=== PATIENT | male | born 1995 | race Two or more races ===

== ENCOUNTER 2018-08-09 16:24 | Emergency (ER) | payer OTHER ==
[~2018-08-09] VITALS: Ht 190.5 cm; Wt 77.1 kg
[2018-08-09] MEDS ORDERED: Methocarbamol 500mg tab ORAL ONE (17:00)
[2018-08-09] MEDS ORDERED: IBUPROFEN600 MG ORAL (17:18)
[2018-08-09] MEDS ORDERED: LIDOCAINE700 M1 TP (17:18)
[2018-08-09] MEDS ORDERED: ROBAXIN500 MG PO (17:18)
--- NOTE | 2018-08-09 17:21 | Emergency Room Report ---
History of Present Illness General Chief Complaint: Head Injury Source: Patient Present Illness HPI 23-year-old male patient presents ER complaining of head and neck pain status post injury. 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 reports injury occurred "about 4 or 5 hours ago". Reports head and neck pain at that time. Denies swelling on top of head. Denies loss of consciousness. Denies vomiting or vision changes. Reports took ibuprofen for pain. Reports pain with turning neck to the right. Denies pain rained down arms. Denies fever, chest pain, shortness of breath. is photophobia or phonophobia. Allergies: Coded Allergies: No Known Allergies (Unverified , 08/09/18) Patient History Past Medical History: see triage record Reviewed Nursing Documentation: PMH: Agreed; PSxH: Agreed Nursing Documentation-PMH Past Medical History: No Stated History Review of Systems All Other Systems: negative except mentioned in HPI Physical Exam Vital Signs Date Time Temp Pulse Resp B/P (MAP) Pulse Ox O2 Delivery O2 Flow Rate FiO2 08/09/18 16:36 98.2 79 18 137/80 98 Room Air Sp02 EP Interpretation: reviewed, normal General Appearance: well appearing, no apparent distress, alert, GCS 15, non- toxic Head: normocephalic, atraumatic, other - no hematoma, no skull depression, tender to palpation over medial posterior scalp, no erythema, no edema, no ecchymosis, no laceration, negative Christopher sign, negative raccoon eyes Eyes: bilateral eye normal inspection, bilateral eye PERRL ENT: hearing grossly normal, normal pharynx, no angioedema, normal voice, uvula midline, moist mucus membranes Neck: full range of motion, no bony tend Respiratory: lungs clear, normal breath sounds, no rhonchi, no respiratory distress, no accessory muscle use, no wheezing, speaking full sentences Cardiovascular #1: regular rate, rhythm, no edema Musculoskeletal: back normal, digits/nails normal, gait/station normal, normal range of motion, non-tender Neurologic: alert, oriented x3, responsive, 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 Vaca is my supervising Physician whom patient management has been discussed with. Diagnostic Impression: Primary Impression: Acute head injury Additional Impression: Neck pain ER Course Pt presents to ED c/o head and neck pain status post trauma. DDX considered but are not limited to laceration, abrasion, contusion, cellulitis, ICH, skull fracture, concussion, sprain, strain, fracture, muscle spasm. no loss of consciousness, no vomiting or vision changes, injury occurred several hours ago, patient is talkative, answering questions without difficulty , alert and oriented,, low suspicion for concussion. VITAL SIGNS are WNL, patient is afebrile ED INTERVENTIONS: patient states took ibuprofen about 2-3 hours ago, will provide patient with Robaxin and lidocaine patch while in the ER. no focal neuro deficits, cranial nerves intact as tested, no consciousness, no vomiting or vision changes, low suspicion for intracranial pathology, does not require CT of head at this time. small area of tenderness on posterior scalp, no skull depression, no laceration , no erythema or ecchymosis, no hematoma, likely contusion causing pain symptoms. Apply ice to affected area for pain and swelling symptoms. Take ibuprofen for pain. offered patient option of x-ray of neck, patient declined. No spinous process tenderness, full ROM, no bony depression, no pain radiating down arms, low suspicion for fracture, does not require imaging of neck at this time. patient states he can perform his normal activities at work and would like return to work. Worker's Compensation paperwork completed. follow up with Workmen's Compensation physician. Patient OK for discharge to home. Patient resting comfortably, in no acute distress, nontoxic appearing. DISCHARGE: Rx provided for Robaxin Rx provided for lidocaine Rx provided for Ibuprofen At this time pt is stable for d/c to home. Patient resting comfortably, in no acute distress, nontoxic appearing, talking without difficulty. Will provide with patient care instructions and any necessary prescriptions. Patient to take medication as instructed. Care plan and follow-up instructions provided. Patient questions asked and answered. Patient reports understanding and agrement to treatment plan. Patient instructed to follow-up with primary care provider in 1-3 days for wound check and 5-7 days for removal of paulie. Patient instructed to followup with PCP to discuss further treatment plan and ability to go to work, ER precautions given. Patient instructed to return to ER immediately for any new or worsening of symptoms. - Please note that this Emergency Department Report was dictated using [employer] physician technology software, occasionally this can lead to erroneous entry secondary to interpretation by the dictation equipment. Last Vital Signs Date Time Temp Pulse Resp B/P (MAP) Pulse Ox O2 Delivery O2 Flow Rate FiO2 08/09/18 16:36 98.2 79 18 137/80 98 Room Air Status: improved Disposition: HOME, SELF-CARE Condition: Stable Scripts Methocarbamol* (ROBAXIN*) 500 Mg Tablet 500 MG PO TID, #21 TAB 0 Refills Prov: Toño Perez 08/09/18 Ibuprofen* (MOTRIN*) 600 Mg Tablet 600 MG ORAL THREE TIMES A DAY, #30 TAB 0 Refills Prov: Toño Perez 08/09/18 Lidocaine (Lidocaine) 1 Each Adh..patch 5 % TP DAILY for 7 Days, #7 PATCH Prov: Toño Perez 08/09/18 Patient Instructions: Cervical Sprain, [id number], Head Injury, Adult, Easy- to-Read Additional Instructions: Patient instructed to follow up with workman's compensation physician in 1-2 days and discuss further referral and imaging at that time. Patient instructed on rest, ice and heat. Do not take muscle relaxant prior to drinking, driving, or operating heavy machinery. Take medications as directed. Patient questions asked and answered. ER precautions given, patient instructed to return to ER immediately for any new or worsening of symptoms. [facility] [address] [facility] [address] [facility], [id number] [email or web address] Follow up with primary care physician in 1 - 2 days. If you experience loss of consciousness, vision loss or intractable vomiting, return to ED immediately. Avoid screen time. Drink plenty of fluids. Avoid alcohol/drug use, rest. Toño Perez Aug 09, 2018 17:21
[2018-08-09 17:29] VITALS: BP 132/79
== END 2018-08-09 18:29 | disposition home or self-care (01) ==
LOC: EMR 17:33
DX: S09.8XXA Other specified injuries of head, initial encounter (principal); M54.2 Cervicalgia; W22.8XXA Striking against or struck by other objects, initial encounter; Y92.89 Other specified places as the place of occurrence of the external cause
CPT/HCPCS: 99282